=== PATIENT | male | born 2000 | race Caucasian/White ===

== ENCOUNTER 2024-11-11 19:38 | Emergency (ER) | payer OTHER ==
[~2024-11-11] VITALS: Ht 175.3 cm; Wt 82.0 kg
[2024-11-11 19:50] VITALS: BP 130/72; PULSE 75; RESP 18; TEMP 98.8; O2SAT 99
== END 2024-11-11 22:05 ==
LOC: ER 19:38
DX: S93.401A Sprain of unspecified ligament of right ankle, initial encounter (principal); W01.0XXA Fall on same level from slipping, tripping and stumbling without subsequent striking against object, initial encounter; Y93.89 Activity, other specified; Y92.89 Other specified places as the place of occurrence of the external cause; Y99.8 Other external cause status
CPT/HCPCS: 73590; 73610; 73630; 99284